=== PATIENT | male | born 1955 | race African-American/Black ===

== ENCOUNTER 2023-05-16 12:41 | Emergency (ER) | payer SELFPAY ==
[2023-05-16 13:01] VITALS: RESP 18; TEMP 98.2; BMI 16.7
[2023-05-16 14:01] LABS: HEMATOCRIT 33.2 % (35.4-49); HEMOGLOBIN 10.5 GM/dL (11.7-16.9); MCH 28.7 pg (25.7-33.7); MCHC 31.7 g/dl (32.0-35.9); MEAN CELL VOLUME 90.5 fl (80-96); MEAN PLT VOLUME 7.5 fl (7.5-11.1); PLATELET COUNT 407 10^3/uL (134-434); RBC 3.68 M/mm3 (4.00-5.60); WHITE BLOOD COUNT 5.4 K/mm3 (4.0-10.0)
[2023-05-16 14:09] LABS: INR 0.87 (0.83-1.09); PROTHROMBIN TIME (PATIENT) 10.1 SEC (9.7-13.0)
[2023-05-16 14:11] LABS: ACTIVATED PTT 24.6 SECONDS (25.2-36.5)
[2023-05-16 14:39] LABS: ANISOCYTOSIS 1+; MACROCYTOSIS 0; TARGET CELLS 1+
[2023-05-16 14:44] LABS: POTASSIUM 5.2 mmol/L (3.5-5.1)
[2023-05-16 14:46] LABS: ALBUMIN 3.2 g/dl (3.4-5.0); BLOOD UREA NITROGEN 26.4 mg/dL (7-18); CALCIUM 9.2 mg/dL (8.5-10.1); MAGNESIUM 1.7 mg/dL (1.8-2.4)
[2023-05-16 14:49] LABS: CREATININE 1.3 mg/dL (0.55-1.3)
[2023-05-16 14:51] LABS: BILIRUBIN,TOTAL 0.2 mg/dL (0.2-1); TOT PROT 7.6 g/dl (6.4-8.2)
[2023-05-16 16:28] VITALS: BP 100/75; PULSE 83
== END 2023-05-16 18:04 | disposition home or self-care (01) ==
LOC: JER 12:41
DX: F10.129 Alcohol abuse with intoxication, unspecified (principal); R78.0 Finding of alcohol in blood; Y90.8 Blood alcohol level of 240 mg/100 ml or more
CPT/HCPCS: 36415; 70450-TC; 71045-TC-FY; 72125-TC; 80053; 80307; 83735; 84484; 85025; 85610; 85730; 93005; 93010; 99285-25